=== PATIENT | female | born 1980 | race Caucasian/White ===

== ENCOUNTER → 2018-04-08 | Outpatient (CLI) | payer BC ==
[~2018-04-08] MED LIST: ASCO-191 PO; CHOL500025 PO; CIPR1VIA2 RIGHT EAR; LABE100T2 PO
== END ==
LOC: AUD 13:45
PROVIDERS: ATTEND Otolaryngology
DX: H69.80 Other specified disorders of Eustachian tube, unspecified ear (principal)
CPT/HCPCS: 92557; 92570